=== PATIENT | female | born 1950 | race Caucasian/White ===

== ENCOUNTER → 2019-05-28 12:11 | Outpatient (CLI) | payer MEDICARE, OTHER, SELFPAY ==
[2019-05-28 11:36] VITALS: BMI 34.8
--- NOTE | 2019-05-28 12:19 | RAD_ITS ---
HISTORY: CHEST PAIN S/P GA Tamp; CVA 4 MOs AGO; CABG ADDITIONAL HISTORY: None provided. COMPARISON: None TECHNIQUE: Frontal and lateral chest radiographs. Number of images including paperwork: 2 FINDINGS: LUNGS AND PLEURA: Mild hyperinflation. Minimal linear and reticular opacities, most pronounced peripherally and at the bases are suggestive of mild fibrotic changes. CARDIAC SILHOUETTE: Upper normal size. MEDIASTINUM AND MIGUELANGEL: Aortic calcification and tortuosity. UPPER ABDOMEN: Right upper quadrant surgical clips. SKELETON AND SOFT TISSUES: No acute findings. OTHER DEVICES AND HARDWARE: Sternal hardware and surgical clips. RAD/Chest PA and Lateral IMPRESSION: 1. Hyperinflation may indicate COPD. 2. Peripheral linear and reticular opacities are most likely related to mild fibrotic changes. at 2325 Reported and signed by: Nory Garcia MD Electronically Signed: Nory Garcia MD at 23:25 EST Tel , Service support ,
== END ==
PROVIDERS: Family Provider Internal Medicine; PCP Internal Medicine; Referring Provider Internal Medicine Cardiovascular Disease; Visit Provider Internal Medicine Cardiovascular Disease
DX: Z95.1 Presence of aortocoronary bypass graft (principal)
CPT/HCPCS: 71046

== ENCOUNTER → 2019-06-12 13:05 | Outpatient (CLI) | payer MEDICARE, OTHER, SELFPAY ==
[2019-05-28 11:36] VITALS: BMI 34.8
--- NOTE | 2019-06-12 13:06 | ECHOD_ITS ---
Reason For Study: S/P CABG Procedure This was a 2D Doppler, Color Flow transthoracic echocardiogram. Exam performed in department. Left Ventricle Normal left ventricle. Left ventricular systolic function is normal. The estimated ejection fraction is 65 %. Stage 1 diastolic dysfunction. No regional wall motion abnormalities noted. Right Ventricle Normal RV size. Normal systolic function. Atria Normal left atrium. Normal right atrium. Mitral Valve Mild focal mitral valve calcification, bileaflet. Tricuspid Valve Normal tricuspid valve. Aortic Valve Normal aortic valve. Pulmonic Valve Normal pulmonic valve. Great Vessels Normal aortic root. The pulmonary artery is normal size. Normal inferior vena cava. Pericardium/Pleural No pericardial effusion. MMode/2D Measurements & Calculations LVIDd: 3.7 cm IVSd: 1.1 cm Ao root diam: 3.8 cm LVIDs: 2.8 cm LVPWd: 1.1 cm RVDd: 3.0 cm FS: 24.5 % LAV(MOD-bp): 54.9 ml LVAd ap4: 32.5 cm2 SV(MOD-sp4): 64.5 ml LAV(MOD-bp) Indexed: 27.6 ml/m2 EDV(MOD-sp4): 109.8 ml LAV(MOD-sp2): 65.8 ml EDV(sp4-el): 116.7 ml LAV(MOD-sp4): 40.5 ml LVAs ap4: 18.7 cm2 ESV(MOD-sp4): 45.3 ml ESV(sp4-el): 49.7 ml EF(MOD-sp4): 58.8 % EF(sp4-el): 57.4 % SV(sp4-el): 67.0 ml LA A4 area: 15.3 cm2 LA dimension(2D): 4.5 cm RA A4 area: 9.6 cm2 Time Measurements MV dec time: 0.23 sec Doppler Measurements & Calculations MV E max rafael: 78.8 cm/sec Lat Peak E' Rafael: 6.8 cm/sec Med Peak E' Rafael: 4.3 cm/sec MV A max rafael: 92.8 cm/sec E/E' lat: 11.6 E/E' med: 18.2 MV E/A: 0.85 MV V2 max: 104.6 cm/sec Ao V2 max: 135.9 cm/sec LV V1 max: 107.6 cm/sec MV max P.4 mmHg Ao max P.4 mmHg LV V1 max P.6 mmHg MV V2 mean: 64.8 cm/sec MV mean P.9 mmHg MV V2 VTI: 33.9 cm PA V2 max: 81.1 cm/sec PI end-d rafael: 129.7 cm/sec TR max rafael: 217.0 cm/sec TR max P.8 mmHg MV P1/2t-pr_phl: 131.0 msec Interpretation Summary Normal left ventricle. Left ventricular systolic function is normal. The estimated ejection fraction is 65 %. Stage 1 diastolic dysfunction. Ordering Physician: Nik Anguiano Referring Physician: ANDREA CORDOBA Performed By: Judith Han, RDCS, RVT
== END ==
PROVIDERS: Family Provider Internal Medicine; PCP Internal Medicine; Referring Provider Internal Medicine Cardiovascular Disease; Visit Provider Internal Medicine Cardiovascular Disease
DX: I25.10 Atherosclerotic heart disease of native coronary artery without angina pectoris (principal); Z95.1 Presence of aortocoronary bypass graft
CPT/HCPCS: 93306

== ENCOUNTER → 2019-08-07 | Outpatient (CLI) | payer MEDICARE, OTHER, SELFPAY ==
[2019-05-28 11:36] VITALS: BMI 34.8
== END | disposition home or self-care (01) ==
LOC: PSN 10:46
PROVIDERS: PCP Internal Medicine; Referring Provider Internal Medicine Cardiovascular Disease; Visit Provider Internal Medicine Cardiovascular Disease
DX: R55 Syncope and collapse (principal); R00.1 Bradycardia, unspecified; I25.10 Atherosclerotic heart disease of native coronary artery without angina pectoris; E78.5 Hyperlipidemia, unspecified; I10 Essential (primary) hypertension; Z95.1 Presence of aortocoronary bypass graft; Z86.73 Personal history of transient ischemic attack (TIA), and cerebral infarction without residual deficits
CPT/HCPCS: 93225; 93226

== ENCOUNTER → 2020-08-25 15:00 | Outpatient (CLI) | payer MEDICARE, SELFPAY ==
[2020-08-25 13:47] VITALS: BMI 40.3
--- NOTE | 2020-08-25 15:02 | RAD_ITS ---
STUDY: X-RAY CHEST REASON FOR EXAM: Female, 70 years old. SOB TECHNIQUE: PA and lateral views of the chest. COMPARISON: Comparison is made with prior examination dated 02/26/2019. FINDINGS: Hyperinflation. Stable mild increased markings at the lung bases slightly more prominent on the left side suggestive of bibasilar scarring. Stable blunting of the left costophrenic angle. Sternal cerclage wires and vascular clips are present from a prior sternotomy and coronary artery bypass graft procedure (CABG). Normal mediastinum and arturo. Normal visualized pulmonary arteries. There is atherosclerotic calcification of the aortic arch with tortuosity. Normal visualized thoracic spine. Normal visualized ribs, clavicles, and shoulders. Surgical clips are seen in the right upper quadrant suggestive of prior cholecystectomy. RAD/Chest PA and Lateral IMPRESSION: Stable mild degree of scarring at the lung bases with blunting of the left costophrenic angle. Electronically Signed: Audi Webb MD at 15:41 EST , Service support ,
[2020-08-25 16:09] LABS: Absolute Lymphocyte Count 1.51 X10^3/uL (0.83-4.51); Absolute Neutrophil Count 5.8 X10^3/uL (2.0-7.7); Basophil# 0.04 X10^3/uL; Basophil% 0.5 % (0-1); Eosinophil# 0.29 X10^3/uL; Eosinophils% 3.4 % (0-5); Hemoglobin 13.1 g/dL (12.0-15.0); Lymphocyte # 1.51 X10^3/ul (4.0); Lymphocyte % 17.9 % (19-41); Mean Corpuscular Volume 90.9 fL (81-99); Mean Platelet Vol. 10.2 fl (6.2-12.0); Monocyte# 0.73 X10^3/uL; Monocyte% 8.7 % (0-10); NRBC Flagged by Analyzer 0 % (0-5); Neutrophil # 5.82 X10^3/uL (2.7-7.7); Neutrophil % 69.1 % (47-70); Platelet Count 262 K/mm3 (150-450); Red Blood Count 4.51 M/mm3 (4.2-5.4); White Blood Count 8.4 K/mm3 (4.4-11.0)
[2020-08-25 16:27] LABS: BNP,B-Type NATRIURETIC PEPTIDE 138.6 pg/mL (0-100)
[2020-08-25 16:28] LABS: Anion Gap 5 (5-15); BUN 30 mg/dL (7-18); BUN/Creat Ratio 18.5 RATIO (10-20); Calcium,Total 9.1 mg/dL (8.5-10.1); Chloride 103 mmol/L (98-107); Creatinine, Serum 1.62 mg/dL (0.55-1.02); EST Glomerular Filtration Rate 34 mL/min (>60); Est Glom Filt Rate - Afr Amer 41 mL/min (>60); Glucose 131 mg/dL (74-106); Magnesium 2.6 mg/dL (1.6-2.6); Potassium 4.1 mmol/L (3.5-5.1); Sodium Level 138 mmol/L (136-145)
== END ==
PROVIDERS: PCP Internal Medicine; Referring Provider Nurse Practitioner Family; Visit Provider Nurse Practitioner Family
DX: I10 Essential (primary) hypertension (principal); R06.00 Dyspnea, unspecified; I25.10 Atherosclerotic heart disease of native coronary artery without angina pectoris; E78.5 Hyperlipidemia, unspecified; Z95.1 Presence of aortocoronary bypass graft
CPT/HCPCS: 36415; 71046; 80048; 83735; 83880; 85025

== ENCOUNTER 2020-10-27 15:30 | Outpatient (RCR) | payer MEDICARE, SELFPAY ==
[2020-08-09 07:51] VITALS: BMI 41.1
--- NOTE | 2020-08-15 16:04 | HP.PTEVAL_ITS ---
Patient's Visit Information CHIQUI BACA is a 70 year old F referred to Physical Therapy by Dr. Nik Anguiano MD with a diagnosis of poor gait. Date of Evaluation: 08/15/20 Physical Therapist: Lala Gonsalez DPT - Visit Plan Frequency: 2x /Week Duration: 4 Weeks Plan: ambulates with cane but is unable to amublate long distances. to increase balance, functional mobility and endurance. IE HEP: seated marches, seated HR/TR, scapular retractions, seated hip add with ball - Subjective December 2018 triple bipass and stroke with L sided weakness. Went to therapy for 2 weeks and can walk fine. March of 2019 she started having trouble walking. Pt had one fall after getting home. Pt reports that she cant walk and its driving her crazy. Pt reports that she falls all the time and cant get up when she falls. Pt reported she fell saturday and squad had to come, she had falled 6x in the 2-3 weeks. Pt has been falling on hardwood floors. Pt cannot recall how long as she has been using the cane. Pt does not use anything to get around the house besides holding onto the armando. Pain: R sided back pain. pt reports that she has trouble breathing after going down the steps. does not know how recent that is. - possible since the stroke. home setup: driveway to house 10 steps with a cement wall. bedroom and bathroom are on one floor. 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 Pt has been have dizzy spells when she is getting out of bed. takes medication. Pt sleep 10 hours a night and is sleeping in a regular bed. is able to get up in the middle of the night without assistance. Meds: took self off cholestorl pills, takes meds for dizzy spells, takes Crazy pills. takes aspirin every 2- 3 hours to help her walk. PMHx: high BP, high cholestrol, diabetes (controlled) - Objective Posture: FH, RS- does not maintain with verbal cues or tactile cues. Observation: Pt is obese, SOB after any movement. Gait: ambulated with cane but required w/c back to treatment room from waiting room. TU.26 with straight cane. 30 second sit to stand: 6 with UE and straight cane. HR/TR: decreased on R side, required BUE support on wall. SLS: not tested d/t safety but pt will weight shift. standing balance: normal REMIGIO: 10 sec, narrow REMIGIO: 7 sec, semi- tandem: 5 sec all tested with cane and UE support from wall/table and EO. further balance testing was not safe to test at this time. Strength: hip R 4/5, L 4-/5 all planes, knee 4/5, ankle 4/5. ROM: hip/knee/ankle: WFL - Goals Goal 1:: Pt will be I with HEP and progression Goal Time Frame: 4-6 Weeks Goal 2:: Pt will ambulate >300ft with least restrictive device in order to promote I functional mobility. Goal Time Frame: 4-6 Weeks Goal 3:: Pt will perform TUG >10 seconds with least restrictive device to decrease fall risk. Goal Time Frame: 4-6 Weeks Goal 4:: Patient will perform 10 sit to stands in 30 seconds Goal Time Frame: 4-6 Weeks - Rehabilitation Potential Physical Therapy Diagnosis: Pt presents with decreased balance, endurance, gait mechanics, strength impacting pt's ability to perform I ADLs. Rehabilitation Potential: Good - Anticipated Interventions Patient/Client Instruction: Educate patient on: Plan of Care For the Purpose of:: To improve muscle performance and motor function, To improve performance and independence with ADL's Therapeutic Exercise to Include: Strength training, Endurance training, Balance training, Coordination, Body mechanics, Postural training, Flexibilty training, Gait and locomotor training, Dynamic Lumbar Stabilization, Scapular Strength/Stabilization For the Purpose of:: To improve ability to perform ADL's Assistive Devices: Sanchez Thank you for the opportunity to evaluate your patient. For Medicare and Medicare HMO plans, please review the plan of care and approve it. It will need to be FAXED BACK to us at [phone] for Medicare purposes. For Medicare only, by signing this I certify the plan of care. Please let me know if there are questions or concerns regarding this plan of care. Physician Signature: Date:
--- NOTE | 2020-09-15 14:59 | HP.PTREVAL_ITS ---
Dr. Nik Anguiano MD, It has been my pleasure to treat CHIQUI BACA over the last 6 visits for poor gait. Please see the progress note below for an update on the physical therapy plan of care! Subjective: Patient reports that her leg is really bothering her and does not feel any better. Is doing some exercises 2x a week and is coming 2x a week. reports that she is not doing anything at home. Is using the can at home but also has a rollerator. Objective/Function: Posture: FH, RS- does not maintain with verbal cues or t actile cues. Observation: Pt is obese, SOB after any movement. 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 Required w/c back to treatment room from waiting room. TUG: unable to perform today. . 30 second sit to stand: 3 with UE and straight cane. HR/TR: decreased on R side, required BUE support on wall. SLS: weight shift only requiers UE A Bilateral. standing balance: static: fair minus, dynamic: poor reaches for hand held assist. Strength: hip R 4/5, L 4-/5 all planes, knee 4/5, ankle 4/5. Plan Plan: 09/15/2020: Given all exercises seated for HEP- standing exercises, balance and gait. ambulates with cane but is unable to amublate long distances. to increase balance, functional mobility and endurance Goals Goal 1:: Pt will be I with HEP and progression Goal Time Frame: 4-6 Weeks Goal Progress: Progressing Goal 2:: Pt will ambulate >300ft with least restrictive device in order to promote I functional mobility. Goal Time Frame: 4-6 Weeks Goal Progress: Progressing Goal 3:: Pt will perform TUG >10 seconds with least restrictive device to decrease fall risk. Goal Time Frame: 4-6 Weeks Goal Progress: Not Progressing Goal 4:: Patient will perform 10 sit to stands in 30 seconds Goal Time Frame: 4-6 Weeks Goal Progress: Progressing Anticipated Interventions Patient/Client Instruction: Educate patient on: Plan of Care For the Purpose of:: To improve muscle performance and motor function, To improve performance and independence with ADL's Therapeutic Exercise to Include: Strength training, Endurance training, Balance training, Coordination, Body mechanics, Postural training, Flexibilty training, Gait and locomotor training, Dynamic Lumbar Stabilization, Scapular Strength/Stabilization For the Purpose of:: To improve ability to perform ADL's Assistive Devices: Sanchez Please do not hesitate to contact me at [phone] by phone or if you have questions or concerns regarding this new plan of care! Sincerely, ALFRED ManzanoT
--- NOTE | 2020-09-29 12:13 | HP.PTREVAL_ITS ---
Dr. Nik Anguiano MD, It has been my pleasure to treat CHIQUI BACA over the last 10 visits for poor gait. Please see the progress note below for an update on the physical therapy plan of care! Subjective: Patient reports that she is doing okay, she is frustrated that she is not better. But she is now able to get up and walk around her house for a few times a day, did dishes and got in/out of the house alone Objective/Function: Posture: FH, RS- does not maintain with verbal cues or tactile cues. 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 When given VC;s she will pull the left LE through to a step through gait pattern and is much improved- but does not maintain. Required w/c back to treatment room from waiting room. TUG: unable to perform today- prior session -28.4 sec, 18.7 sec, 18.5 sec 30 second sit to stand: 3 with UE and straight cane. SLS: weight shift only requiers UE A Bilateral. standing balance: static: fair minus, dynamic: poor reaches for hand held assist. Strength: hip R 4/5, L 4-/5 all planes, knee 4/5, ankle 4/5. Plan Plan: 09/29/2020: Re-ssued HEP- continue PT 2x a week for 4 weeks- NO SEATED EXERCISES IN CLINIC. Focus on balance, ambulation and endurance- stairs. 09/15/2020: Given all exercises seated for HEP- standing exercises, balance and gait. ambulates with cane but is unable to amublate long distances. to increase balance, functional mobility and endurance Goals Goal 1:: Pt will be I with HEP and progression Goal Time Frame: 4-6 Weeks Goal Progress: Progressing Goal 2:: Pt will ambulate >300ft with least restrictive device in order to promote I functional mobility. Goal Time Frame: 4-6 Weeks Goal Progress: Progressing Goal 3:: Pt will perform TUG >10 seconds with least restrictive device to decrease fall risk. Goal Time Frame: 4-6 Weeks Goal Progress: Progressing Goal 4:: Patient will perform 10 sit to stands in 30 seconds Goal Time Frame: 4-6 Weeks Goal Progress: Progressing Anticipated Interventions Patient/Client Instruction: Educate patient on: Plan of Care For the Purpose of:: To improve muscle performance and motor function, To improve performance and independence with ADL's Therapeutic Exercise to Include: Strength training, Endurance training, Balance training, Coordination, Body mechanics, Postural training, Flexibilty training, Gait and locomotor training, Dynamic Lumbar Stabilization, Scapular Strength/Stabilization For the Purpose of:: To improve ability to perform ADL's Assistive Devices: Cane Please do not hesitate to contact me at [phone] by phone or if you have questions or concerns regarding this new plan of care! Sincerely, ALFRED ManzanoT
== END 2020-10-27 19:00 | disposition home or self-care (01) ==
LOC: PT 15:30
PROVIDERS: PCP Internal Medicine; Referring Provider Internal Medicine Cardiovascular Disease; Visit Provider Internal Medicine Cardiovascular Disease
DX: R29.6 Repeated falls (principal); I10 Essential (primary) hypertension; Z95.1 Presence of aortocoronary bypass graft; Z86.73 Personal history of transient ischemic attack (TIA), and cerebral infarction without residual deficits; I25.10 Atherosclerotic heart disease of native coronary artery without angina pectoris
CPT/HCPCS: 97110; 97116; 97162; 97164; 97530

== ENCOUNTER → 2021-02-10 10:56 | Outpatient (CLI) | payer MEDICARE, SELFPAY ==
[2021-02-10 12:21] LABS: Anion Gap 6 (5-15); BUN 23 mg/dL (7-18); Calcium,Total 9.2 mg/dL (8.5-10.1); Chloride 104 mmol/L (98-107); Creatinine, Serum 1.21 mg/dL (0.55-1.02); EST Glomerular Filtration Rate 47 mL/min (>60); Est Glom Filt Rate - Afr Amer 57 mL/min (>60); Glucose 265 mg/dL (74-106); Potassium 4.2 mmol/L (3.5-5.1); Sodium Level 135 mmol/L (136-145)
[2021-02-10 12:30] LABS: BNP,B-Type NATRIURETIC PEPTIDE 131.8 pg/mL (0-100)
== END ==
PROVIDERS: PCP Internal Medicine; Referring Provider Nurse Practitioner Gerontology; Visit Provider Nurse Practitioner Gerontology
DX: R06.02 Shortness of breath (principal)
CPT/HCPCS: 36415; 80048; 83880